=== PATIENT | male | born 1985 | race Hispanic/Latino ===

== ENCOUNTER 2017-07-28 17:57 | Emergency (ER) | payer OTHER ==
[2017-07-28 18:05] VITALS: BP 143/97; PULSE 91; RESP 16; TEMP 98.6; O2SAT 97
[2017-07-28] MEDS ORDERED: Lidocaine 1% Inj (20ml) IJ ONE (18:17)
[2017-07-28] MEDS ORDERED: Lidocaine 1% Inj (20ml) ONE (18:18)
--- NOTE | 2017-07-28 18:47 | ED PDOC ---
Upper Extremity Pain/Injury Time Seen by Provider: 07/28/17 18:00 Chief Complaint (Nursing): Upper Extremity Problem/Injury Chief Complaint (Provider): Upper Extremity Injury History Per: Patient History/Exam Limitations: no limitations Onset/Duration Of Symptoms: Hrs (x9) Current Symptoms Are (Timing): Still Present Additional Complaint(s): 31 year old right-handed male presents to ED with complaints of left finger pain x9 hours and has no relative past medical history. Patient states he was trying to remove an item from a wheelchair with a knife while at a work event and accidentally cut his finger. Notes laceration is around 3 cm. (-) loss of function or numbness. PCP: Non [facility]PH Past Medical History Reviewed: Historical Data, Nursing Documentation, Vital Signs Vital Signs: Last Vital Signs Temp 98.6 F 07/28/17 18:00 Pulse 91 H 07/28/17 18:00 Resp 16 07/28/17 18:00 BP 143/97 H 07/28/17 18:00 Pulse Ox 97 07/28/17 18:00 - Medical History PMH: No Chronic Diseases - Surgical History Surgical History: No Surg Hx - Family History Family History: States: No Known Family Hx - Allergies Allergies/Adverse Reactions: Allergies Allergy/AdvReac Type Severity Reaction Status Date / Time No Known Allergies Allergy Verified 07/28/17 18:02 Review of Systems ROS Statement: Except As Marked, All Systems Reviewed And Found Negative Musculoskeletal: Positive for: Other (laceration on left hand) Neurological: Negative for: Weakness, Numbness Physical Exam - Reviewed Nursing Documentation Reviewed: Yes Vital Signs Reviewed: Yes - Physical Exam Appears: Positive for: Non-toxic, No Acute Distress Skin: Positive for: Normal Color, Warm, Dry Respiratory: Negative for: Respiratory Distress Extremity: Positive for: Normal ROM (flexion/extension of DIP/PIP of finger without difficulty), Other ((+) L shaped laceration 3.25 cm on left distal DIP volar surface) Neurologic/Psych: Positive for: Alert, Oriented. Negative for: Motor/Sensory Deficits - ECG O2 Sat by Pulse Oximetry: 97 (RA) Pulse Ox Interpretation: Normal Medical Decision Making Medical Decision Makin * Digital block 1% lido (1mL IJ) * PROCEDURE NOTE: wound repair Scribe Attestation: Documented by Laureen Calles, acting as a scribe for Jose Cortez PA-C. Provider Scribe Attestation: All medical record entries made by the Scribe were at my direction and personally dictated by me. I have reviewed the chart and agree that the record accurately reflects my personal performance of the history, physical exam, medical decision making, and the department course for this patient. I have also personally directed, reviewed, and agree with the discharge instructions and disposition. Procedures - Time-Out Type of Procedure: Wound Repair Site of Procedure: Left finger DIP volar surface Correct Patient: Yes Correct Procedure: Yes Correct Site Marked: Yes X-Ray Marked: NA Medication Recon: Yes - Laceration/Wound Repair LAC Wound Length (cm): 3.25 Wound's Depth, Shape: flap (L shaped flap) Wound Explored: clean Anesthesia: 1% Lidocaine Wound Repaired With: Sutures Suture Size/Type: 5:0 Number of Sutures: 9 Layer Closure?: Yes Wound Complexity: Simple Disposition - Clinical Impression Clinical Impression: Finger laceration - Patient ED Disposition Is Patient to be Admitted: No - Disposition Disposition: Routine/Home Disposition Time: 19:40 Condition: FAIR Additional Instructions: RETURN IN 8 TO 10 DAYS OR F/U WITH PMD/URGENT CARE FOR REMOVAL OF SUTURES. Instructions: Finger Laceration (ED) Forms: [employer] ([place]), [facility] ED School/Work Excuse
== END 2017-07-28 20:02 | disposition home or self-care (01) ==
LOC: H.ER 17:57
DX: S61.219A Laceration without foreign body of unspecified finger without damage to nail, initial encounter (principal); W26.0XXA Contact with knife, initial encounter

== ENCOUNTER 2017-08-06 21:40 | Emergency (ER) | payer OTHER ==
[2017-08-06 21:47] VITALS: BP 141/88; PULSE 76; RESP 18; TEMP 97.8; O2SAT 99
--- NOTE | 2017-08-06 21:53 | ED PDOC ---
HPI: Wound Care - HPI Time Seen by Provider: 08/06/17 21:51 Chief Complaint (Nursing): Wound Check Chief Complaint (Provider): Suture removal - Left index finger History Per: Patient Exam Limitations: no limitations Onset/Duration Of Symptoms: Days Current Symptoms Are (Timing): Still Present Severity: None Additional Complaint(s): No drainage. PT not taking antibiotics. Past Medical History Reviewed: Historical Data, Nursing Documentation, Vital Signs Vital Signs: Last Vital Signs Temp 97.8 F 08/06/17 21:44 Pulse 76 08/06/17 21:44 Resp 18 08/06/17 21:44 BP 141/88 08/06/17 21:44 Pulse Ox 99 08/06/17 21:44 - Medical History PMH: No Chronic Diseases - Surgical History Surgical History: No Surg Hx - Family History Family History: States: No Known Family Hx - Living Arrangements Living Arrangements: With Family - Social History Current smoker - smoking cessation education provided: Yes Alcohol: Occasional Drugs: Denies - Allergies Allergies/Adverse Reactions: Allergies Allergy/AdvReac Type Severity Reaction Status Date / Time No Known Allergies Allergy Verified 07/28/17 18:02 Review of Systems ROS Statement: Except As Marked, All Systems Reviewed And Found Negative Constitutional: Negative for: Fever, Chills Skin: Positive for: Other Physical Exam - Reviewed Nursing Documentation Reviewed: Yes Vital Signs Reviewed: Yes - Physical Exam Appears: Positive for: Well, Non-toxic, No Acute Distress Head Exam: Positive for: ATRAUMATIC, NORMAL INSPECTION, NORMOCEPHALIC Skin: Positive for: Warm. Negative for: Normal Color (8 sutures intact. ) Eye Exam: Positive for: Normal appearance ENT: Positive for: Normal ENT Inspection Neck: Positive for: Normal, Painless ROM Respiratory: Negative for: Accessory Muscle Use Gastrointestinal/Abdominal: Positive for: Normal Exam, Bowel Sounds, Soft Back: Positive for: Normal Inspection Extremity: Positive for: Normal ROM Neurologic/Psych: Positive for: Alert, Oriented - ECG O2 Sat by Pulse Oximetry: 99 Medical Decision Making Medical Decision Making: Sutures removed with suture removal kit. Disposition - Clinical Impression Clinical Impression: Visit for suture removal - Patient ED Disposition Is Patient to be Admitted: No Counseled Patient/Family Regarding: Diagnosis, Need For Followup - Disposition Disposition: Routine/Home Disposition Time: 21:54 Condition: GOOD Instructions: Stitches Removal (ED) Forms: [employer] ([place])
== END 2017-08-06 22:28 | disposition home or self-care (01) ==
LOC: H.ER 21:40
DX: Z48.02 Encounter for removal of sutures (principal)